=== PATIENT | female | born 1965 | race Caucasian/White ===

== ENCOUNTER 2017-08-24 07:23 | Observation (INO) | payer BC ==
[2017-08-24] VITALS (9 sets, daily range): BP systolic 132–156; BP diastolic 63–72; PULSE 67–102; RESP 17–18; TEMP 97.8–99.5; O2SAT 94–100
[~2017-08-24] VITALS: Ht 162.6 cm; Wt 72.0 kg
[~2017-08-24 07:23] MED LIST: BUPR100CR PO; ESTRGN METHTEST PO; SIMV20TA PO; ZOLP10TA3 PO
[2017-08-24] MEDS ORDERED: SODIUM CHLOR 0.9% 1000 ML INJ 1,000 ML IV ONE ×2 (07:29→10:15)
[2017-08-24] MEDS ORDERED: SODIUM CHLORIDE 0.9% FLUSH 10 ML FLUSH IVF PRN (07:30)
[2017-08-24] MEDS ORDERED: ACTIVATED CHARCOAL LIQUID 25 GM/120 ML BTL PO/NG ONE (07:30)
[2017-08-24] MEDS ORDERED: ONDANSETRON HCL 4 MG/2 ML VIAL IV PUSH ONE (07:30)
[2017-08-24] MEDS ORDERED: NALOXONE HCL 2 MG/2 ML VIAL IV PUSH ONE (07:30)
--- NOTE | 2017-08-24 07:31 | PD ---
HPI Chief Complaint: Altered mental status Time Seen by Provider: 07:29 Travel History International Travel<30 days: No Contact w/Intl Traveler<30days: No History of Present Illness HPI 52-year-old female arrived to the ER by EMS secondary to altered mental status. She has found by her who works nights to have been asleep in her bed in very slow to arousal with tactile stimulus. EMS reports hydrocodone in lorazepam prescriptions at the bedside. EMS an odor of alcohol or seeing alcohol on scene. Initially a GCS of 8. After Narcan it improved to about 10 or so. The blood glucose in vital signs were normal aside from a respiratory rate of 6 initially. PFSH Past Medical History Depression: Yes Cancer: No Cardiovascular Problems: Yes (HISTORY OF RT SUBCLAVIAN STEAL SYNDROME) High Cholesterol: Yes Chest Pain: Yes Diminished Hearing: No Endocrine: No Genitourinary: No Hypertension: Yes Immune Disorder: No Musculoskeletal: No Neurologic: No Psychiatric: Yes Reproductive: No Respiratory: No Menopausal: Yes Past Surgical History Hysterectomy: Yes Thoracic Surgery: Yes (BREAST AUGMENTATION) Social History Alcohol Use: No Tobacco Use: Yes (1/2PPD) Substance Use: No Allergies-Medications (Allergen,Severity, Reaction): Coded Allergies: Sulfa (Sulfonamide Antibiotics) (Unverified Allergy, Severe, 03/21/17) Reported Meds & Prescriptions Reported Meds & Active Scripts Active Reported Wellbutrin Sr (Bupropion HCl) 100 Mg Tab 100 Mg PO DAILY Simvastatin 20 Mg Tab 20 Mg PO HS Zolpidem Tartrate 10 Mg Tab 10 Mg PO HS [Estrgn Methtest ] PO DAILY Review of Systems ROS Limitations: Clinical Condition Physical Exam Narrative GENERAL: 52-year-old female well-nourished well-developed a GCS 12 SKIN: Warm and dry. No evidence IV drug abuse. HEAD: Atraumatic. Normocephalic. EYES: No scleral icterus. No injection or drainage. Pupils equal round reactive to light. Pupils about 3 mm. ENT: No nasal bleeding or discharge. Mucous membranes pink and moist. NECK: Trachea midline. No JVD. CARDIOVASCULAR: Heart rate about 100. The rhythm is regular RESPIRATORY: No accessory muscle use. Clear to auscultation. Breath sounds equal bilaterally. GASTROINTESTINAL: Abdomen soft, non-tender, nondistended. Hepatic and splenic margins not palpable. MUSCULOSKELETAL: Extremities without clubbing, cyanosis, or edema. No obvious deformities. NEUROLOGICAL: GCS is 12 (eyes 4, verbal 4, motor 4). No focal cranial nerve deficit. PSYCHIATRIC: Presumed polysubstance ingestion of indeterminate intent. Unable to assess further. Data Data Last Documented VS Vital Signs Date Time Temp Pulse Resp B/P (MAP) Pulse Ox O2 Delivery O2 Flow Rate FiO2 08/24/17 07:52 97 Room Air 08/24/17 07:29 97.8 Orders Orders Complete Blood Count With Diff (08/24/17 07:29) Comprehensive Metabolic Panel (08/24/17 07:29) Chest, Single Ap (08/24/17 07:29) Iv Access Insert/Monitor (08/24/17 07:29) Ecg Monitoring (08/24/17 07:29) Oximetry (08/24/17 07:29) Charcoal Activated Liq (Actidose-Aqua Li (08/24/17 07:30) Naloxone Inj (Narcan Inj) (08/24/17 07:30) Ondansetron Inj (Zofran Inj) (08/24/17 07:30) Sodium Chloride 0.9% Flush (Ns Flush) (08/24/17 07:30) Sodium Chlor 0.9% 1000 Ml Inj (Ns 1000 M (08/24/17 07:29) Drug Screen, Random Urine (08/24/17 07:29) Alcohol (Ethanol) (08/24/17 07:29) Salicylates (Aspirin) (08/24/17 07:29) Tylenol (Acetaminophen) (08/24/17 07:29) Prothrombin Time / Inr (Pt) (08/24/17 07:29) Act Partial Throm Time (Ptt) (08/24/17 07:29) Psych Screen (08/24/17 08:53) Sodium Chlor 0.9% 1000 Ml Inj (Ns 1000 M (08/24/17 10:15) Consult Psychiatry (08/24/17 ) (Hub Use Only)Inp Phy Cons/Ref (08/24/17 ) Admit Order (Ed Use Only) (08/24/17 ) Metal Sander / Telemetry JOSE ANTONIO.Q8H (08/24/17 10:32) Vital Signs (Adult) Q4H (08/24/17 10:32) Activity Bed Rest (08/24/17 10:32) Place In Observation (08/24/17 ) Vital Signs (Adult) Q4H (08/24/17 10:30) Activity Oob With Assistance (08/24/17 10:30) Intake + Output JOSE ANTONIO.QSHIFT (08/24/17 10:30) Diet Regular Basic (08/24/17 Lunch) Sodium Chlor 0.9% 1000 Ml Inj (Ns 1000 M (08/24/17 11:00) Sodium Chloride 0.9% Flush (Ns Flush) (08/24/17 10:30) Sodium Chloride 0.9% Flush (Ns Flush) (08/24/17 21:00) Acetaminophen (Tylenol) (08/24/17 10:30) Ondansetron Inj (Zofran Inj) (08/24/17 10:30) Basic Metabolic Panel (Bmp) (08/25/17 06:00) Complete Blood Count With Diff (08/25/17 06:00) Electrocardiogram (08/24/17 10:30) Electrocardiogram (08/24/17 16:30) Resp Oxygen Jean Carlos C Titrat 1-4 L (08/24/17 ) Pt Request For Service (08/24/17 10:30) Case Management Consult (08/24/17 10:30) Enoxaparin Inj (Lovenox Inj) (08/24/17 10:30) Scd Bilateral/Knee High JOSE ANTONIO.BID (08/24/17 10:30) Kodak Bilateral/Knee High JOSE ANTONIO.QSHIFT (08/24/17 10:30) Naloxone Inj (Narcan Inj) (08/24/17 10:30) Docusate Sodium-Senna (Francesca-Colace) (08/24/17 21:00) Magnesium Hydroxide Liq (Milk Of Magnesi (08/24/17 10:30) Sennosides (Senokot) (08/24/17 10:30) Bisacodyl Supp (Dulcolax Supp) (08/24/17 10:30) Lactulose Liq (Lactulose Liq) (08/24/17 10:30) Labs Laboratory Tests Test 08/24/17 07:45 08/24/17 09:30 White Blood Count 16.6 TH/MM3 Red Blood Count 4.34 MIL/MM3 Hemoglobin 13.4 GM/DL Hematocrit 40.6 % Mean Corpuscular Volume 93.7 FL Mean Corpuscular Hemoglobin 30.9 PG Mean Corpuscular Hemoglobin Concent 33.0 % Red Cell Distribution Width 13.5 % Platelet Count 450 TH/MM3 Mean Platelet Volume 8.2 FL Neutrophils (%) (Auto) 80.3 % Lymphocytes (%) (Auto) 12.1 % Monocytes (%) (Auto) 7.4 % Eosinophils (%) (Auto) 0.0 % Basophils (%) (Auto) 0.2 % Neutrophils # (Auto) 13.3 TH/MM3 Lymphocytes # (Auto) 2.0 TH/MM3 Monocytes # (Auto) 1.2 TH/MM3 Eosinophils # (Auto) 0.0 TH/MM3 Basophils # (Auto) 0.0 TH/MM3 CBC Comment DIFF FINAL Differential Comment Prothrombin Time 10.7 SEC Prothromb Time International Ratio 1.1 RATIO Activated Partial Thromboplast Time 20.0 SEC Blood Urea Nitrogen 20 MG/DL Creatinine 1.34 MG/DL Random Glucose 101 MG/DL Total Protein 7.6 GM/DL Albumin 3.9 GM/DL Calcium Level 9.4 MG/DL Alkaline Phosphatase 91 U/L Aspartate Amino Transf (AST/SGOT) 33 U/L Alanine Aminotransferase (ALT/SGPT) 23 U/L Total Bilirubin 0.3 MG/DL Sodium Level 139 MEQ/L Potassium Level 3.8 MEQ/L Chloride Level 104 MEQ/L Carbon Dioxide Level 26.2 MEQ/L Anion Gap 9 MEQ/L Estimat Glomerular Filtration Rate 41 ML/MIN Salicylates Level LESS THAN 1.7 MG/DL Acetaminophen Level LESS THAN 2.0 MCG/ML Ethyl Alcohol Level LESS THAN 3 MG/DL Urine Opiates Screen POS Urine Barbiturates Screen NEG Urine Amphetamines Screen NEG Urine Benzodiazepines Screen POS Urine Cocaine Screen NEG Urine Cannabinoids Screen NEG MDM Medical Decision Making Medical Screen Exam Complete: Yes Emergency Medical Condition: Yes Differential Diagnosis Opioid overdose, benzo overdose, liver injury, metabolic disarray, overdose of indeterminate content Narrative Course CBC & BMP Diagram 08/24/17 07:45 Total Protein 7.6, Albumin 3.9, Calcium Level 9.4, Alkaline Phosphatase 91, Aspartate Amino Transf (AST/SGOT) 33, Alanine Aminotransferase (ALT/SGPT) 23, Total Bilirubin 0.3 There is no evidence of liver injury at this time. The patient has been monitored here for over 2 hours in has improved somewhat however is not at this time considered sufficiently competent neurologically for medical clearance. Ongoing monitoring with anticipation of improved mental status considered appropriate. Psych consultation. case d/w Dr Locke Diagnosis Primary Impression: Altered mental status Qualified Codes: R41.82 - Altered mental status, unspecified Additional Impressions: Opioid overdose Qualified Codes: T40.2X4A - Poisoning by other opioids, undetermined, initial encounter Benzodiazepine (tranquilizer) overdose Qualified Codes: T42.4X4A - Poisoning by benzodiazepines, undetermined, initial encounter Admitting Information Admitting Physician Requests: Observation Neo Ingram MD Aug 24, 2017 07:31
[2017-08-24 08:07] LABS: AUTOMATED NEUTROPHIL # 13.3 TH/MM3 (1.8-7.7); BASOPHIL % 0.2 % (0.0-2.0); HEMATOCRIT 40.6 % (35.0-46.0); HEMOGLOBIN 13.4 GM/DL (11.6-15.3); LYMPH % 12.1 % (9.0-44.0); MEAN CELL VOLUME 93.7 FL (80.0-100.0); MEAN CORPUSCULAR HEMOGLOBIN 30.9 PG (27.0-34.0); MEAN PLATELET VOLUME 8.2 FL (7.0-11.0); MONO % 7.4 % (0.0-8.0); MONOCYTE # 1.2 TH/MM3 (0-0.9); NEUT % 80.3 % (16.0-70.0); PLATELET COUNT 450 TH/MM3 (150-450); RED BLOOD COUNT 4.34 MIL/MM3 (4.00-5.30); RED CELL DISTRIBUTION WIDTH 13.5 % (11.6-17.2); WHITE BLOOD COUNT 16.6 TH/MM3 (4.0-11.0)
--- NOTE | 2017-08-24 08:11 | RADRPT ---
EXAM DATE/TIME: 08/24/2017 07:50 [place] COMPARISON: No previous studies available for comparison. INDICATIONS : Short of breath; AMS. MEDICAL HISTORY : Unobtainable. SURGICAL HISTORY : Unobtainable. ENCOUNTER: Initial ACUITY: 1 day PAIN SCORE: Non-responsive. LOCATION: Bilateral chest FINDINGS: Portable AP view of the chest demonstrates a normal-sized cardiac silhouette. There is symmetric biap ical pleural-parenchymal opacity, likely representing scar. No pleural effusion, airspace consolidati on, or pneumothorax identified. The bones and soft tissues demonstrate no acute finding. CONCLUSION: Symmetric biapical opacity likely representing pleural parenchymal scar. Otherwise, no acute finding is identified. Chinmay Sun MD on August 24, 2017 at 8:07 Board Certified Radiologist. This report was verified electronically.
[2017-08-24 08:20] LABS: INTERNATIONAL NORMALIZED RATIO 1.1 RATIO; PROTHROMBIN TIME - PATIENT 10.7 SEC (9.8-11.6)
[2017-08-24 08:39] LABS: ALBUMIN 3.9 GM/DL (3.4-5.0); AST (GOT) 33 U/L (15-37); BICARBONATE 26.2 MEQ/L (21.0-32.0); BLOOD UREA NITROGEN 20 MG/DL (7-18); CALCIUM 9.4 MG/DL (8.5-10.1); CHLORIDE 104 MEQ/L (98-107); CREATININE 1.34 MG/DL (0.50-1.00); GLOMERULAR FILTRATION RATE 41 ML/MIN (>89); GLUCOSE,RANDOM 101 MG/DL (74-106); SODIUM (NA) 139 MEQ/L (136-145)
[2017-08-24 08:40] LABS: ALT (GPT) 23 U/L (10-53)
[2017-08-24 08:42] LABS: ACETAMINOPHEN LESS THAN 2.0 MCG/ML (10.0-30.0); ALKALINE PHOSPHATASE 91 U/L (45-117); TOTAL BILIRUBIN ADULT 0.3 MG/DL (0.2-1.0); TOTAL PROTEIN 7.6 GM/DL (6.4-8.2)
[2017-08-24] MEDS ORDERED: SENNOSIDES 8.6 MG TAB PO PRN (10:30)
[2017-08-24] MEDS ORDERED: SODIUM CHLORIDE 0.9% FLUSH 10 ML FLUSH IV FLUSH PRN (10:30)
[2017-08-24] MEDS ORDERED: ACETAMINOPHEN 325 MG TAB PO PRN (10:30)
[2017-08-24] MEDS ORDERED: ONDANSETRON HCL 4 MG/2 ML VIAL IVP PRN (10:30)
[2017-08-24] MEDS ORDERED: MAGNESIUM HYDROXIDE SUSP 30 ML CUP PO PRN (10:30)
[2017-08-24] MEDS ORDERED: LACTULOSE SYRUP 20 GM/30 ML CUP PO PRN (10:30)
[2017-08-24] MEDS ORDERED: NALOXONE HCL 0.4 MG/ML AMP IV PUSH PRN (10:30)
[2017-08-24] MEDS ORDERED: BISACODYL 10 MG SUPP RECTAL PRN (10:30)
[2017-08-24] MEDS: SODIUM CHLOR 0.9% 1000 ML INJ 1,000 ML IV SCH ×2 (11:55→21:00)
--- NOTE | 2017-08-24 11:58 | HHI.HP ---
HPI Service [facility] Hospitalists Primary Care Physician Cherelle Handley MD Admission Diagnosis Polysubstance OD; AMS Diagnoses: Chief Complaint: AMS Travel History International Travel<30 Days: No Contact w/Intl Traveler <30 Da: No Traveled to Known Affected Are: No History of Present Illness Written by Alexa Lr, acting as scribe for Dr. Locke on 08/24/17 at 11: 53. This is a 52yo female with PMHX significant for right subclavian steal syndrome , HTN, HLD and depression who presents to [facility] with AMS. Patient was found by her early this morning in her bed unarousable with benzodiazepines and opiates at her beside. EMS was called to the house and patient had GCS score of 8. Her is at the bedside and due to the patients cognitive impairment, all history is obtained from discussion with the , ED physician and review of the medical record. The states they have been having some martial difficulties and he has not been staying at the house but still goes to check on her. He went in to check on her this morning and was not able to get her to wake up. He denies that she drinks any alcohol or uses any illicit drugs. In the ED, patients GCS was around 12. Her UDS positive for opiates and benzodiazepines. Review of Systems 10 point review of systems attempted but unable to complete due to patients altered mental status Past Family Social History Past Medical History HTN HLD Right subclavian steal syndrome Depression Past Surgical History Breast augmentation Hysterectomy Angioplasty right subclavian 2013 Reported Medications Wellbutrin Sr (Bupropion HCl) 100 Mg Tab 100 Mg PO DAILY Simvastatin 20 Mg Tab 20 Mg PO HS Zolpidem Tartrate 10 Mg Tab 10 Mg PO HS [Estrgn Methtest ] PO DAILY Allergies: Coded Allergies: Sulfa (Sulfonamide Antibiotics) (Unverified Allergy, Severe, 03/21/17) Active Ordered Medications Current Medications Medications (Trade) Dose Ordered Sig/Guera Route Start Time Stop Time Status Last Admin (NS Flush) 2 ml UNSCH PRN IVF 08/24/17 07:30 Sodium Chloride 1,000 ml @ 100 mls/hr Q10H IV 08/24/17 11:00 (NS Flush) 2 ml UNSCH PRN IV FLUSH 08/24/17 10:30 (NS Flush) 2 ml BID IV FLUSH 08/24/17 21:00 (Tylenol) 650 mg Q4H PRN PO 08/24/17 10:30 (Zofran Inj) 4 mg Q6H PRN IVP 08/24/17 10:30 (Lovenox Inj) 40 mg Q24H SQ 08/24/17 12:00 (Narcan Inj) 0.4 mg UNSCH PRN IV PUSH 08/24/17 10:30 (Francesca-Colace) 1 tab BID PO 08/24/17 21:00 (Milk Of Magnesia Liq) 30 ml Q12H PRN PO 08/24/17 10:30 (Senokot) 17.2 mg Q12H PRN PO 08/24/17 10:30 (Dulcolax Supp) 10 mg DAILY PRN RECTAL 08/24/17 10:30 (Lactulose Liq) 30 ml DAILY PRN PO 08/24/17 10:30 Family History Mother, CVA Father, lung cancer Hypertension Coronary artery disease Social History Patient has a history of tobacco use of a half pack per day. Denies any alcohol use or illicit drug use. Physical Exam Vital Signs Vital Signs Date Time Temp Pulse Resp B/P (MAP) Pulse Ox O2 Delivery O2 Flow Rate FiO2 08/24/17 10:56 97 21 08/24/17 07:52 97 Room Air 08/24/17 07:52 97 Room Air 08/24/17 07:29 97.8 Physical Exam GENERAL: This is a well-nourished, well-developed female patient. Lethargic. Confused. Mumbling incomprehensibly. at the bedside. SKIN: No rashes, ecchymoses or lesions. Cool and dry. HEAD: Atraumatic. Normocephalic. No temporal or scalp tenderness. EYES: Pupils equal round and reactive. No scleral icterus. No injection or drainage. ENT: Nose without bleeding or purulent drainage. Throat without erythema, tonsillar hypertrophy or exudate. Uvula midline. Airway patent. Dry mucus membranes. NECK: Trachea midline. No lymphadenopathy. Supple, nontender, no meningeal signs. CARDIOVASCULAR: Regular rate and rhythm without murmurs, gallops, or rubs. RESPIRATORY: Poor effort. Clear to auscultation. Breath sounds equal bilaterally. No wheezes, rales, or rhonchi. GASTROINTESTINAL: Abdomen soft, non-tender, nondistended. No hepato-splenomegaly , or palpable masses. No guarding. MUSCULOSKELETAL: Extremities without clubbing, cyanosis, or edema. No joint tenderness, effusion, or edema noted. No calf tenderness. NEUROLOGICAL: Lethargic. Does not follow simple commands. Able to move all extremities spontaneously. Laboratory Laboratory Tests Test 08/24/17 07:45 08/24/17 09:30 White Blood Count 16.6 Red Blood Count 4.34 Hemoglobin 13.4 Hematocrit 40.6 Mean Corpuscular Volume 93.7 Mean Corpuscular Hemoglobin 30.9 Mean Corpuscular Hemoglobin Concent 33.0 Red Cell Distribution Width 13.5 Platelet Count 450 Mean Platelet Volume 8.2 Neutrophils (%) (Auto) 80.3 Lymphocytes (%) (Auto) 12.1 Monocytes (%) (Auto) 7.4 Eosinophils (%) (Auto) 0.0 Basophils (%) (Auto) 0.2 Neutrophils # (Auto) 13.3 Lymphocytes # (Auto) 2.0 Monocytes # (Auto) 1.2 Eosinophils # (Auto) 0.0 Basophils # (Auto) 0.0 CBC Comment DIFF FINAL Differential Comment Prothrombin Time 10.7 Prothromb Time International Ratio 1.1 Activated Partial Thromboplast Time 20.0 Blood Urea Nitrogen 20 Creatinine 1.34 Random Glucose 101 Total Protein 7.6 Albumin 3.9 Calcium Level 9.4 Alkaline Phosphatase 91 Aspartate Amino Transf (AST/SGOT) 33 Alanine Aminotransferase (ALT/SGPT) 23 Total Bilirubin 0.3 Sodium Level 139 Potassium Level 3.8 Chloride Level 104 Carbon Dioxide Level 26.2 Anion Gap 9 Estimat Glomerular Filtration Rate 41 Salicylates Level LESS THAN 1.7 Acetaminophen Level LESS THAN 2.0 Ethyl Alcohol Level LESS THAN 3 Urine Opiates Screen POS Urine Barbiturates Screen NEG Urine Amphetamines Screen NEG Urine Benzodiazepines Screen POS Urine Cocaine Screen NEG Urine Cannabinoids Screen NEG Result Diagram: 08/24/17 0745 08/24/1745 Imaging Last Impressions Chest X-Ray 08/24/17728 Signed Impressions: Service Date/Time: August 07:50 - CONCLUSION: Symmetric biapical opacity likely representing pleural parenchymal scar. Otherwise, no acute finding is identified. MD Susana Hartman VTE Risk Assessment Caprini VTE Risk Assessment: Mod/High Risk (score >= 2) Caprini Risk Assessment Model Point Value = 1 Point Value = 2 Point Value = 3 Point Value = 5 Age 41-60 Minor surgery BMI > 25 kg/m2 Swollen legs Varicose veins or History of unexplained or recurrent spontaneous Oral contraceptives or hormone replacement Sepsis (< 1 month) Serious lung disease, including pneumonia (< 1 month) Abnormal pulmonary function Acute myocardial infarction Congestive heart failure (< 1 month) History of inflammatory bowel disease Medical patient at bed rest Age 61-74 Arthroscopic surgery Major open surgery (> 45 min) Laparoscopic surgery (> 45 min) Malignancy Confined to bed (> 72 hours) Immobilizing plaster cast Central venous access Age >= 75 History of VTE Family history of VTE Factor V Leiden Prothrombin [id number] Lupus anticoagulant Anticardiolipin antibodies Elevated serum homocysteine Heparin-induced thrombocytopenia Other congenital or acquired thrombophilia Stroke (< 1 month) Elective arthroplasty Hip, pelvis, or leg fracture Acute spinal cord injury (< 1 month) Prophylaxis Regimen Total Risk Factor Score Risk Level Prophylaxis Regimen 0-1 Low Early ambulation 2 Moderate Order ONE of the following: *Sequential Compression Device (SCD) *Heparin 5000 units SQ BID 3-4 Higher Order ONE of the following medications: *Heparin 5000 units SQ TID *Enoxaparin/Lovenox 40 mg SQ daily (WT < 150 kg, CrCl > 30 mL/min) *Enoxaparin/Lovenox 30 mg SQ daily (WT < 150 kg, CrCl > 10-29 mL/min) *Enoxaparin/Lovenox 30 mg SQ BID (WT < 150 kg, CrCl > 30 mL/min) AND/OR *Sequential Compression Device (SCD) 5 or more Highest Order ONE of the following medications: *Heparin 5000 units SQ TID (Preferred with Epidurals) *Enoxaparin/Lovenox 40 mg SQ daily (WT < 150 kg, CrCl > 30 mL/min) *Enoxaparin/Lovenox 30 mg SQ daily (WT < 150 kg, CrCl > 10-29 mL/min) *Enoxaparin/Lovenox 30 mg SQ BID (WT < 150 kg, CrCl > 30 mL/min) AND *Sequential Compression Device (SCD) Assessment and Plan Assessment and Plan 52yo female with PMHX significant for right subclavian steal syndrome, HTN, HLD and depression who presents to [facility] with AMS. Patient was found by her early this morning in her bed unarousable with benzodiazepines and opiates at her beside. Altered mental status/metabolic encephalopathy Possible intentional drug overdose History of depression - UDS positive for opiates and benzodiazepine. Neg for ethyl alcohol. - Psychiatry consulted by ED, appreciate recommendations - Avoid all sedating medications - Neuro checks - IVF - Monitor respiratory status -Cheek act Acute kidney injury - suspect secondary to dehydration/poor oral intake - Creatinine 1.34, GFR 41 - Avoid nephrotoxic agent - IVF - Monitor kidney function Leukocytosis - suspect reactive - patient is afebrile. CXR reviewed by me, no acute cardiopulmonary process - monitor white count Hypertension/Dyslipidemia - will resume home medications once med reconciliation updated DVT prophylaxis - Lovenox subcutaneous This note was transcribed by TYRESE Jorgensen . I, Dr. Babita Locke personally performed the history, physical exam, and medical decision making; and confirmed the accuracy of the information in the transcribed note. Authenticated by Dr. Babita Locke on 08/24/17 at 11:53. Discussed Condition With ED physician, patient, , Alexa Healy Aug 24, 2017 11:58 Babita Locke MD Aug 24, 2017 13:46
[2017-08-24] MEDS ORDERED: ENOXAPARIN SODIUM 40 MG/0.4 ML SYRINGE SQ SCH (12:00)
--- NOTE | 2017-08-24 14:00 | PD.PSY.CON ---
Provisional Diagnosis Admission Date Aug 24, 2017 at 10:33 [place] I. Major depressive disorder, recurrent, severe, delirium due to benzodiazepine overdose [place] II. Deferred History of Present Illness Service Psychiatry Consult Requested By ER team Reason for Consult SI Primary Care Physician Cherelle Handley MD HPI The patient is a 52 year-old woman domiciled wither in [place], self employed, with psychiatry history of depression and anxiety , no hospitalizations, no SA, she is in Wellbutrin 100 mg bid prescribed by PCP, medical history of right subclavian steal syndrome, HTN, HLD, who presents to [facility] with AMS. Patient was found by her early this morning in her bed unarousable with benzodiazepines and opiates at her beside. EMS was called to the house and patient had GCS score of 8. Her is at the bedside and due to the patients cognitive impairment, all history is obtained from discussion with the , ED physician and review of the medical record. The states they have been having some martial difficulties and he has not been staying at the house but still goes to check on her. He went in to check on her this morning and was not able to get her to wake up. He denies that she drinks any alcohol or uses any illicit drugs. In the ED, patients GCS was around 12. Her UDS positive for opiates and benzodiazepines. On psychiatric evaluation patient is non arausable, sedated, no able to participate in the interview. I have collateral information from her Dhaval Bolden. He says that the patient has been in a lot of stress, overwhelmed and anxious in the last week. He says that he has an strong suspicion that she overdosed with suicidal intentions. He relates that they have been marital problems for months now, but in the last week does probably have exacerbated and few days ago he left the house and asked her for divorce. He clarifies that the patient has history of anxiety and depression and she is in psychotropics, but he doesn't know the name of the medicine and strength. Review of Systems ROS Limitations: Unresponsive, Uncooperative Past Family Social History Coded Allergies: Sulfa (Sulfonamide Antibiotics) (Unverified Allergy, Severe, 03/21/17) Reported Medications Simvastatin (Simvastatin) 20 Mg Tab, 20 MG PO HS 02/13/13 Discontinued Reported Medications Bupropion Hcl (Wellbutrin Sr) 100 Mg Tab, 100 MG PO DAILY, TAB 11/30/15 Zolpidem Tartrate (Zolpidem Tartrate) 10 Mg Tab, 10 MG PO HS 02/13/13 [Estrgn Methtest ] No Conflict Check, PO DAILY 02/13/13 Current Medications Medications (Trade) Dose Ordered Sig/Guera Route Start Time Stop Time Status Last Admin (NS Flush) 2 ml UNSCH PRN IVF 08/24/17 07:30 Sodium Chloride 1,000 ml @ 100 mls/hr Q10H IV 08/24/17 11:00 08/24/17 11:55 (NS Flush) 2 ml UNSCH PRN IV FLUSH 08/24/17 10:30 (NS Flush) 2 ml BID IV FLUSH 08/24/17 21:00 (Tylenol) 650 mg Q4H PRN PO 08/24/17 10:30 (Zofran Inj) 4 mg Q6H PRN IVP 08/24/17 10:30 (Lovenox Inj) 40 mg Q24H SQ 08/24/17 12:00 08/24/17 11:55 (Narcan Inj) 0.4 mg UNSCH PRN IV PUSH 08/24/17 10:30 (Francesca-Colace) 1 tab BID PO 08/24/17 21:00 (Milk Of Magnesia Liq) 30 ml Q12H PRN PO 08/24/17 10:30 (Senokot) 17.2 mg Q12H PRN PO 08/24/17 10:30 (Dulcolax Supp) 10 mg DAILY PRN RECTAL 08/24/17 10:30 (Lactulose Liq) 30 ml DAILY PRN PO 08/24/17 10:30 Family Psych History No family psychiatric history Social History Patient was born and raised in [place], she lives in [place] with , is self employed, her highest level of education is has Patient's Strengths (min. 2) Family support Physical Exam Patient is the sedated Vital Signs Vital Signs Date Time Temp Pulse Resp B/P (MAP) Pulse Ox O2 Delivery O2 Flow Rate FiO2 08/24/17 12:48 67 18 132/69 (90) 97 Room Air 08/24/17 10:56 21 08/24/17 07:29 97.8 I/O 08/24/17 08/24/17 08/25/17 08:00 16:00 00:00 Intake Total 1000 ml Balance 1000 ml Lab Results Test 08/24/17 07:45 08/24/17 09:30 White Blood Count 16.6 TH/MM3 Red Blood Count 4.34 MIL/MM3 Hemoglobin 13.4 GM/DL Hematocrit 40.6 % Mean Corpuscular Volume 93.7 FL Mean Corpuscular Hemoglobin 30.9 PG Mean Corpuscular Hemoglobin Concent 33.0 % Red Cell Distribution Width 13.5 % Platelet Count 450 TH/MM3 Mean Platelet Volume 8.2 FL Neutrophils (%) (Auto) 80.3 % Lymphocytes (%) (Auto) 12.1 % Monocytes (%) (Auto) 7.4 % Eosinophils (%) (Auto) 0.0 % Basophils (%) (Auto) 0.2 % Neutrophils # (Auto) 13.3 TH/MM3 Lymphocytes # (Auto) 2.0 TH/MM3 Monocytes # (Auto) 1.2 TH/MM3 Eosinophils # (Auto) 0.0 TH/MM3 Basophils # (Auto) 0.0 TH/MM3 CBC Comment DIFF FINAL Differential Comment Prothrombin Time 10.7 SEC Prothromb Time International Ratio 1.1 RATIO Activated Partial Thromboplast Time 20.0 SEC Blood Urea Nitrogen 20 MG/DL Creatinine 1.34 MG/DL Random Glucose 101 MG/DL Total Protein 7.6 GM/DL Albumin 3.9 GM/DL Calcium Level 9.4 MG/DL Alkaline Phosphatase 91 U/L Aspartate Amino Transf (AST/SGOT) 33 U/L Alanine Aminotransferase (ALT/SGPT) 23 U/L Total Bilirubin 0.3 MG/DL Sodium Level 139 MEQ/L Potassium Level 3.8 MEQ/L Chloride Level 104 MEQ/L Carbon Dioxide Level 26.2 MEQ/L Anion Gap 9 MEQ/L Estimat Glomerular Filtration Rate 41 ML/MIN Salicylates Level LESS THAN 1.7 MG/DL Acetaminophen Level LESS THAN 2.0 MCG/ML Ethyl Alcohol Level LESS THAN 3 MG/DL Urine Opiates Screen POS Urine Barbiturates Screen NEG Urine Amphetamines Screen NEG Urine Benzodiazepines Screen POS Urine Cocaine Screen NEG Urine Cannabinoids Screen NEG Mental Status Examination Appearance: Disheveled (Limited MSE due to level of sedation ) Consciousness: Lethargic Suicidal Ideation: Yes Assessment & Plan Problem List: (1) Delirium due to another medical condition ICD Codes: F05 - Delirium due to known physiological condition (2) Benzodiazepine (tranquilizer) overdose ICD Codes: T42.4X1A - Poisoning by benzodiazepines, accidental (unintentional) , initial encounter Status: Acute (3) Major depressive disorder, single episode ICD Codes: F32.9 - Major depressive disorder, single episode, unspecified Assessment & Plan: At the moment of the evaluation patient is deeply slept, sedated after OD with benzodiazepines. Patient has been reportedly disorganized and agitated on her arrival in the ER mos probably due to delirium secondary to benzodiazepines intoxication. As patient's is highly like that she overdosed with suicidal intentions because he left the house last Monday and Monday they have an argument again and she suggested she was to commit suicide. At this moment patient represents an acute risk of danger to self and she meets criteria for involuntary psychiatric admission for stabilization. Augustus fernandez act the patient. CIWA protocol. Follow up poison control protocol. Case was discussed with Dr. Locke. Transfer to [facility] once medically apposite. Assessment & Plan Estimated LOS: days Problem Qualifiers (1) Benzodiazepine (tranquilizer) overdose: Qualified Codes: T42.4X4A - Poisoning by benzodiazepines, undetermined, initial encounter Mayco Cunha MD Aug 24, 2017 14:00
--- NOTE | 2017-08-24 18:55 | EKG ---
Date Performed: 08/24/2017 Time Performed: 11:50:37 PTAGE: 52 years EKG: Sinus rhythm NORMAL ECG PREVIOUS TRACING : 02/13/2013 13.03 DOCTOR: Trev Piper Interpretating Date/Time 08/24/2017 18:53:34
--- NOTE | 2017-08-24 19:39 | EKG ---
Date Performed: 08/24/2017 Time Performed: 16:35:30 PTAGE: 52 years EKG: Sinus rhythm MINIMAL ST DEPRESSION BORDERLINE ECG No significant change from prior electrocardiogram. PREVIOUS TRACING : 08/24/2017 11.50 DOCTOR: Carlos Wiley Interpretating Date/Time 08/24/2017 19:38:06
[2017-08-24] MEDS: SODIUM CHLORIDE 0.9% FLUSH 10 ML FLUSH IV FLUSH SCH (20:47)
[2017-08-24] MEDS: DOCUSATE SODIUM 50 MG/SENNA 8.6 MG TAB PO SCH (20:47)
[2017-08-25 01:43] VITALS: BP 105/53; PULSE 103; RESP 18; TEMP 99.1; O2SAT 94
[2017-08-25 05:24] VITALS: BP 105/55; PULSE 96; RESP 17; TEMP 98.3; O2SAT 95
[2017-08-25 06:11] LABS: AUTOMATED NEUTROPHIL # 7.7 TH/MM3 (1.8-7.7); BASOPHIL % 0.4 % (0.0-2.0); EOSINOPHIL % 0.2 % (0.0-4.0); HEMOGLOBIN 11.4 GM/DL (11.6-15.3); LYMPH % 21.6 % (9.0-44.0); LYMPHOCYTE # 2.4 TH/MM3 (1.0-4.8); MEAN CELL VOLUME 93.5 FL (80.0-100.0); MEAN CORPUSCULAR HEMOGLOBIN 31.3 PG (27.0-34.0); MEAN CORPUSCULAR HGB CONC 33.4 % (32.0-36.0); MEAN PLATELET VOLUME 8.3 FL (7.0-11.0); MONO % 8.4 % (0.0-8.0); MONOCYTE # 0.9 TH/MM3 (0-0.9); NEUT % 69.4 % (16.0-70.0); PLATELET COUNT 370 TH/MM3 (150-450); RED BLOOD COUNT 3.63 MIL/MM3 (4.00-5.30); RED CELL DISTRIBUTION WIDTH 13.1 % (11.6-17.2); WHITE BLOOD COUNT 11.1 TH/MM3 (4.0-11.0)
[2017-08-25 06:14] VITALS: PULSE 97
[2017-08-25 06:39] LABS: CALCIUM 8.4 MG/DL (8.5-10.1); CREATININE 1.21 MG/DL (0.50-1.00)
[2017-08-25] MEDS: SODIUM CHLOR 0.9% 1000 ML INJ 1,000 ML IV SCH (07:00)
[2017-08-25 08:00] VITALS: BP 136/65; PULSE 91; RESP 16; TEMP 98.4; O2SAT 97
[2017-08-25 08:34] LABS: ALBUMIN 3.2 GM/DL (3.4-5.0); DIRECT BILIRUBIN ADULT 0.1 MG/DL (0.0-0.2); INDIRECT BILIRUBIN 0.3 MG/DL (0.0-0.8); TOTAL BILIRUBIN ADULT 0.4 MG/DL (0.2-1.0); TOTAL PROTEIN 6.5 GM/DL (6.4-8.2)
[2017-08-25] MEDS: SODIUM CHLORIDE 0.9% FLUSH 10 ML FLUSH IV FLUSH SCH (09:00)
[2017-08-25] MEDS: DOCUSATE SODIUM 50 MG/SENNA 8.6 MG TAB PO SCH (09:00)
--- NOTE | 2017-08-25 09:41 | HHI.PR ---
Subjective Remarks Patient in nad. Says she feels better. She is more awake and alert. Per family almost at baseline. Patient denies any cp, sob n/v/d/c. Objective Vitals Vital Signs Date Time Temp Pulse Resp B/P (MAP) Pulse Ox O2 Delivery O2 Flow Rate FiO2 08/25/17 08:00 98.4 91 16 136/65 (88) 97 08/25/17 06:14 97 08/25/17 05:24 98.3 96 17 105/55 (72) 95 08/25/17 02:58 21 08/25/17 01:43 99.1 103 18 105/53 (70) 94 08/24/17 20:36 99.5 102 17 132/63 (86) 94 08/24/17 18:30 93 08/24/17 17:50 98.6 98 18 143/72 (95) 95 08/24/17 15:25 98.1 89 18 144/68 (93) 100 08/24/17 12:48 67 18 132/69 (90) 97 Room Air 08/24/17 10:56 97 21 08/24/17 10:30 75 18 156/72 (100) 100 Room Air I/O 08/24/17 08/24/17 08/24/17 08/25/17 08/25/17 08/25/17 07:00 15:00 23:00 07:00 15:00 23:00 Intake Total 1000 ml 100 ml Balance 1000 ml 100 ml Intake Oral 100 ml IV Total 1000 ml # Voids 3 Result Diagram: 08/25/17 0508/25/17 0522 Imaging Last Impressions Chest X-Ray 08/24/17 07 Signed Impressions: Service Date/Time: August 07:50 - CONCLUSION: Symmetric biapical opacity likely representing pleural parenchymal scar. Otherwise, no acute finding is identified. Chinmay Sun MD Objective Remarks GENERAL: This is a well-nourished, well-developed female patient, appears in nad. More awake and alert CARDIOVASCULAR: Regular rate and rhythm without murmurs, gallops, or rubs. RESPIRATORY: Poor effort. Clear to auscultation. Breath sounds equal bilaterally. No wheezes, rales, or rhonchi. GASTROINTESTINAL: Abdomen soft, non-tender, nondistended. No hepato-splenomegaly , or palpable masses. No guarding. MUSCULOSKELETAL: Extremities without clubbing, cyanosis, or edema. No joint tenderness, effusion, or edema noted. No calf tenderness. NEUROLOGICAL: more awake and alert and oriented x4. Follows commands and answers appropriately all questions. CN 2-12 grossly normal. Motor and sensory intact. Normal speech. A/P Assessment and Plan 52yo female with PMHX significant for right subclavian steal syndrome, HTN, HLD and depression who presents to [facility] with AMS. Patient was found by her early this morning in her bed unarousable with benzodiazepines and opiates at her beside. Altered mental status/metabolic encephalopathy Possible intentional drug overdose History of depression - UDS positive for opiates and benzodiazepine. Neg for ethyl alcohol. - Psychiatry consulted by ED, appreciate recommendations - Avoid all sedating medications - Neuro checks - IVF - Monitor respiratory status - Cheek act - DC to inpatient psych Acute kidney injury, improving to be DC to med psych to continue IVF , encourage PO intake - suspect secondary to dehydration/poor oral intake - Creatinine 1.34, GFR 41 - Avoid nephrotoxic agent - IVF - Monitor kidney function Leukocytosis - suspect reactive - patient is afebrile. CXR reviewed by me, no acute cardiopulmonary process - monitor white count Hypertension/Dyslipidemia - will resume home medications once med reconciliation updated DVT prophylaxis - Lovenox subcutaneous Discussed Condition With Patient, family Improving, pt almost at baseline. DC to inpatient psych Discharge Planning DC to inpatient psych in stable condition to follow up with PCP and consultants Meds per med reconciliations Activity ad tequila as tolerated Diet healthy heart DC time > 30 min Babita Locke MD Aug 25, 2017 09:41
[2017-08-25 10:52] VITALS: O2SAT 94
== END 2017-08-25 11:40 | disposition home or self-care (01) ==
LOC: NEPC 07:23 → NEDA 10:33 → NEPHCDU 14:43
PROVIDERS: ADMIT Hospitalist; ATTEND Hospitalist
DX: G93.41 Metabolic encephalopathy (principal); T42.4X1A Poisoning by benzodiazepines, accidental (unintentional), initial encounter; T40.2X1A Poisoning by other opioids, accidental (unintentional), initial encounter; F05 Delirium due to known physiological condition; I10 Essential (primary) hypertension; F32.9 Major depressive disorder, single episode, unspecified; E78.5 Hyperlipidemia, unspecified; D72.829 Elevated white blood cell count, unspecified; N17.9 Acute kidney failure, unspecified; Z63.0 Problems in relationship with spouse or partner; Z72.0 Tobacco use; Z90.710 Acquired absence of both cervix and uterus
CPT/HCPCS: 71045; 80048; 80053; 80076; 80307; 85025; 85610; 85730; 93005; 96361; 96372; 96374; 96375; 97162; 99285; G0378; G8987; G8988; J1650; J2310; J2405; J7030

== ENCOUNTER 2017-08-25 10:35 | Inpatient (IN) | payer BC ==
[~2017-08-25] VITALS: Ht 149.9 cm; Wt 53.3 kg
[2017-08-25] MEDS ORDERED: MAGNESIUM HYDROXIDE SUSP 30 ML CUP PO PRN (12:00)
[2017-08-25] MEDS ORDERED: LORazepam 0.5 MG TAB PO PRN (12:00)
[2017-08-25] MEDS ORDERED: ALUMINUM/MAGNESIUM/SIMETH 30 ML CUP PO PRN (12:00)
[2017-08-25] MEDS: NICOTINE 21 MG/24 HR PATCH T-DERMAL SCH (12:00)
[2017-08-25] MEDS ORDERED: LORazepam 2 MG/ML VIAL IM PRN ×2 (12:00)
--- NOTE | 2017-08-25 12:08 | HHI.HP ---
Provisional Diagnosis Admission Date Aug 25, 2017 at 11:41 [place] I. Major depressive disorder, recurrent, severe without psychosis, benzodiazepine intoxication [place] II. Deferred Certification of Person's Competence To Provide Express and Informed Consent I have personally examined Laura Bolden , a person being served at [facility] on, Aug 25, 2017 11:59. Express and informed consent means consent voluntarily given in writing, by a competent person, after sufficient explanation and disclosure of the subject matter involved to enable the person to make a knowing and willful decision without any element of force, fraud, deceit, duress, or other form of constraint or coercion. This person is 18 years of age or older, is not now known to be incompetent to consent to treatment with a guardian advocate, and does not have a health care surrogate or proxy currently making medical treatment decisions. I have found this person to be one of the following: [] Competent to provide express and informed consent, as defined above, for voluntary admission to this facility and is competent to provide express and informed consent for treatment. He/she has the consistent capacity to make well reasoned, willful, and knowing decisions concerning his or her medical or mental health treatment. The person fully and consistently understands the purpose of the admission for examination/placement and is fully capable of personally exercising all rights assured [place] Incompetent to provide express and informed consent to voluntary admission, and this is incompetent to provide express and informed consent to treatment. The person must be transferred to involuntary status and a petition for a guardian advocate filed with the Circuit Court. [x] Refusing to provide express and informed consent to voluntary admission but is competent to provide express and informed consent for treatment. The person must be discharged or transferred to involuntary status. Form shall be completed within 24 hours of a person's arrival at the receiving facility and filed in the clinical record of each person: 1. Admitted on a voluntary basis 2. Permitted to provide express and informed consent to his/her own treatment 3. Allowed to transfer from involuntary to voluntary status 4. Prior to permitting a person to consent to his or her own treatment after having been previously found incompetent to consent to treatment. History of Present Illness Capacity: Has Capacity HPI 08/24/2017 The patient is a 52 year-old woman domiciled wither in [place], self employed, with psychiatry history of depression and anxiety , no hospitalizations, no SA, she is in Wellbutrin 100 mg bid prescribed by PCP, medical history of right subclavian steal syndrome, HTN, HLD, who presents to [facility] with AMS. Patient was found by her early this morning in her bed unarousable with benzodiazepines and opiates at her beside. EMS was called to the house and patient had GCS score of 8. Her is at the bedside and due to the patients cognitive impairment, all history is obtained from discussion with the , ED physician and review of the medical record. The states they have been having some martial difficulties and he has not been staying at the house but still goes to check on her. He went in to check on her this morning and was not able to get her to wake up. He denies that she drinks any alcohol or uses any illicit drugs. In the ED, patients GCS was around 12. Her UDS positive for opiates and benzodiazepines. On psychiatric evaluation patient is non arausable, sedated, no able to participate in the interview. I have collateral information from her Dhaval Bolden. He says that the patient has been in a lot of stress, overwhelmed and anxious in the last week. He says that he has an strong suspicion that she overdosed with suicidal intentions. He relates that they have been marital problems for months now, but in the last week does probably have exacerbated and few days ago he left the house and asked her for divorce. He clarifies that the patient has history of anxiety and depression and she is in psychotropics, but he doesn't know the name of the medicine and strength.\\ 08/25/2017: Today a psychiatric evaluation the patient is calm, cooperative, she seems to be objectively and subjectively depressed. Tearful, she expresses that she regrets her recent actions. She says that she has been extremely depressed, overwhelmed, frustrated with intrusive thoughts of harming herself. She says that she has been confronting serious problems with her . In the last days they have been talking about after 34 years of marriage "and this is not very easy for me, but the most horrible has been his last actions". The patient also reports that she has been feeling hopeless, helpless , worthless, and is sleeping very poorly. The patient is now fully oriented 3 , without any fluctuation of consciousness, no attention deficit. However, as per nurses, the patient has been described as disorganized, with periodic confusion and agitation, but not aggressive. Review of Systems Constitutional: DENIES: Diaphoretic episodes, Fatigue, Fever, Weight gain, Weight loss, Chills, Dizziness, Change in appetite, Night Sweats Endocrine: DENIES: Abnorml menstrual pattern, Heat/cold intolerance, Polydipsia , Polyuria, Polyphagia Eyes: DENIES: Blurred vision, Diplopia, Eye inflammation, Eye pain, Vision loss , Photosensitivity, Double Vision Ears, nose, mouth, throat: DENIES: Tinnitus, Hearing loss, Vertigo, Nasal discharge, Oral lesions, Throat pain, Hoarseness, Ear Pain, Running Nose, Epistaxis, Sinus Pain, Toothache, Odynophagia Respiratory: DENIES: Apneas, Cough, Snoring, Wheezing, Hemoptysis, Sputum production, Shortness of breath Cardiovascular: DENIES: Chest pain, Palpitations, Syncope, Dyspnea on Exertion , PND, Lower Extremity Edema, Orthopnea, Claudication Gastrointestinal: DENIES: Abdominal pain, Black stools, Bloody stools, Constipation, Diarrhea, Nausea, Vomiting, Difficulty Swallowing, Anorexia Genitourinary: DENIES: Abnormal vaginal bleeding, Dysmenorrhea, Dyspareunia, Sexual dysfunction, Urinary frequency, Urinary incontinence, Urgency, Hematuria , Dysuria, Nocturia, Vaginal discharge Musculoskeletal: DENIES: Joint pain, Muscle aches, Stiffness, Joint Swelling, Back pain, Neck pain Integumentary: DENIES: Abnormal pigmentation, Pruritus, Rash, Nail changes, Breast masses, Breast skin changes, Nipple discharge Hematologic/lymphatic: DENIES: Bruising, Lymphadenopathy Immunologic/allergic: DENIES: Eczema, Urticaria Neurologic: DENIES: Abnormal gait, Headache, Localized weakness, Paresthesias, Seizures, Speech Problems, Tremor, Poor Balance Psychiatric: COMPLAINS OF: Mood changes, Depression, Suicidal Ideation, DENIES : Anxiety, Confusion, Hallucinations, Agitation, Homicidal Ideation, Delusions Substance Abuse History Drugs/Alcohol past 12 months Patient denies the use of alcohol and illicit drugs Past Family Social History Coded Allergies: Sulfa (Sulfonamide Antibiotics) (Unverified Allergy, Severe, 03/21/17) Reported Medications Simvastatin (Simvastatin) 20 Mg Tab, 20 MG PO HS 02/13/13 Discontinued Reported Medications Bupropion Hcl (Wellbutrin Sr) 100 Mg Tab, 100 MG PO DAILY, TAB 11/30/15 Zolpidem Tartrate (Zolpidem Tartrate) 10 Mg Tab, 10 MG PO HS 02/13/13 [Estrgn Methtest ] No Conflict Check, PO DAILY 02/13/13 Current Medications Medications (Trade) Dose Ordered Sig/Guera Route Start Time Stop Time Status Last Admin (Ativan) 1 mg Q6H PRN PO 08/25/17 12:00 (Ativan Inj) 1 mg Q6H PRN IM 08/25/17 12:00 UNV (Ativan) 0.5 mg Q12H PRN PO 08/25/17 12:00 UNV (Ativan Inj) 0.5 mg Q12H PRN IM 08/25/17 12:00 UNV (Tylenol) 650 mg Q4H PRN PO 08/25/17 12:00 UNV (Milk Of Magnesia Liq) 30 ml DAILY PRN PO 08/25/17 12:00 UNV (Mag-Al Plus Susp Liq) 30 ml Q6H PRN PO 08/25/17 12:00 UNV (Habitrol 21 Mg Patch.24 Hr) 1 patch DAILY T-DERMAL 08/25/17 12:00 UNV (Zoloft) 25 mg DAILY PO 08/26/17 09:00 UNV Social History Patient was born and raised in [place], she lives in [place] with , is self employed, her highest level of education is has Patient's Strengths (min. 2) Family support Mental Status Examination Appearance: Appropriate Consciousness: Alert Orientation: x4 Motor Activity: Normal gait Speech: Unremarkable Language: Adequate Fund of Knowledge: Adequate Attention and Concentration: Adequate Memory: Unremarkable Mood: Sad Affect: Irritable, Sad Thought Process & Associations: Intact Thought Content: Appropriate Hallucination Type: None Delusion Type: None Suicidal Ideation: Yes Suicidal Plan: No Suicidal Intention: No Homicidal Ideation: No Homicidal Plan: No Homicidal Intention: No Insight: Poor Judgment: Poor Assessment & Plan Problem List: (1) Major depressive disorder, recurrent ICD Codes: F33.9 - Major depressive disorder, recurrent, unspecified Assessment & Plan: On psychiatric evaluation today the patient reports that she has been feeling very overwhelmed, frustrated, depressed in the context of ongoing problems with her . She says that in the last week they have been talking about divorce she has become aware about several "misbehaviors of my that are very difficult to swallow and tolerate". She reports that in the last week she has not been sleeping, she has been having intrusive recurrent thoughts committing suicide to the point that she could not take it anymore and she overdosed in order to . At this moment the patient says that she regrets her action, but she admits that she needs help to straighten her thoughts. Due to the level of risk the patient needs psychiatric admission for stabilization and safety. I will start Zoloft 25 mg daily for depression. Clonazepam 0.5 mg twice a day. Transfer patient to psychiatry once medically cleared. hospital food service worker intervention for psychosocial assessment, collateral information, individual and group therapies, to coordinate a safe discharge. Assessment & Plan Estimated LOS: Mayco Davis MD Aug 25, 2017 12:08
[2017-08-25] MEDS ORDERED: PILL SPLITTER OTHER PRN (12:15)
[2017-08-25 14:31] VITALS: BP 143/63; PULSE 106; RESP 17; TEMP 97.9; O2SAT 98
[2017-08-25 18:17] VITALS: BP 146/74; PULSE 105; RESP 18; TEMP 99.4; O2SAT 96
[2017-08-25] MEDS: REMOVE OLD NICODERM (NICOTINE) PATCH T-DERMAL SCH (21:00)
[2017-08-25] MEDS: PRAVASTATIN SOD 40 MG TAB PO SCH (21:28)
[2017-08-25] MEDS: LORazepam 1 MG TAB PO PRN (21:28)
[2017-08-26 05:56] VITALS: BP 127/62; PULSE 96; RESP 18; TEMP 99.3; O2SAT 95
[2017-08-26] MEDS: SERTRALINE HCL 50 MG TAB PO SCH ×2 (09:00→09:24)
[2017-08-26] MEDS: NICOTINE 21 MG/24 HR PATCH T-DERMAL SCH (09:00)
[2017-08-26 10:40] LABS: BICARBONATE 23.9 MEQ/L (21.0-32.0); BLOOD UREA NITROGEN 17 MG/DL (7-18); CALCIUM 9.3 MG/DL (8.5-10.1); CHLORIDE 107 MEQ/L (98-107); CHOLESTEROL 139 MG/DL (120-200); CHOLESTEROL/ HDL RATIO 2.17 RATIO; CREATININE 1.48 MG/DL (0.50-1.00); GLOMERULAR FILTRATION RATE 37 ML/MIN (>89); GLUCOSE,RANDOM 117 MG/DL (74-106); HDL CHOLESTEROL 63.9 MG/DL (40.0-60.0); LDL CHOLESTEROL 50 MG/DL (0-99); SODIUM (NA) 142 MEQ/L (136-145); TRIGLYCERIDES 124 MG/DL (42-150)
[2017-08-26] MEDS: LORazepam 1 MG TAB PO PRN ×2 (11:03→21:33)
[2017-08-26] MEDS ORDERED: POTASSIUM CHLORIDE 10 MEQ CONTROLLED RELEASE TAB PO ONE (11:15)
--- NOTE | 2017-08-26 11:15 | HHI.PYPN ---
Subjective Remarks Patient was seen and case discussed with nursing. This is a request for second opinion. Admission note was reviewed. Labwork was reviewed and potassium is low and creatinine is elevated. Patient is admitted for suicide attempt secondary to various life stressors. Patient describes a story of 's infidelity sending naked pictures of himself to various woman. Patient says she had a large benefit from Prozac in the past and prefers this medication Zoloft. Today she is quite anxious, tearful and depressed. However she denies suicidal homicidal ideation intent or plan Mental Status Examination Appearance: Appropriate Consciousness: Alert Orientation: x4 Motor Activity: Normal gait Speech: Unremarkable Language: Adequate Fund of Knowledge: Adequate Attention and Concentration: Adequate Memory: Unremarkable Mood: Sad Affect: Irritable, Sad, Anxious Thought Process & Associations: Intact Thought Content: Appropriate Hallucination Type: None Delusion Type: None Suicidal Ideation: Yes Suicidal Plan: No Suicidal Intention: No Homicidal Ideation: No Homicidal Plan: No Homicidal Intention: No Insight: Poor Judgment: Poor Results Labs Test 08/26/17 08:55 Blood Urea Nitrogen 17 MG/DL Creatinine 1.48 MG/DL Random Glucose 117 MG/DL Calcium Level 9.3 MG/DL Sodium Level 142 MEQ/L Potassium Level 3.1 MEQ/L Chloride Level 107 MEQ/L Carbon Dioxide Level 23.9 MEQ/L Anion Gap 11 MEQ/L Estimat Glomerular Filtration Rate 37 ML/MIN Triglycerides Level 124 MG/DL Cholesterol Level 139 MG/DL LDL Cholesterol 50 MG/DL HDL Cholesterol 63.9 MG/DL Cholesterol/HDL Ratio 2.17 RATIO Vitals/IOs Vital Signs Date Time Temp Pulse Resp B/P (MAP) Pulse Ox O2 Delivery O2 Flow Rate FiO2 08/26/17 05:56 99.3 96 18 127/62 (83) 95 Assessment & Plan Problem List: (1) Major depressive disorder, recurrent ICD Codes: F33.9 - Major depressive disorder, recurrent, unspecified Assessment & Plan We will replace potassium 30 mEq and recheck in a couple hours. Check magnesium level, consult medicine. DC Zoloft and start Prozac 20 mg. Trazodone 50 mg by mouth daily at bedtime. I agree with the first opinion to continue petition. Criteria include suicide attempt Justification for Cont. Inpt. Patient would decompensate in a less restrictive setting Mitchel Mann DO Aug 26, 2017 11:15
[2017-08-26] MEDS: FLUoxetine HCL 20 MG CAP PO SCH (12:03)
[2017-08-26 12:13] LABS: HEMOGLOBIN A1C 5.9 % (4.3-6.0)
--- NOTE | 2017-08-26 14:28 | PD.CONS ---
HPI Service [facility] Hospitalists Consult Requested By Psychiatric services Reason for Consult Medical management Primary Care Physician Cherelle Handley MD Diagnoses: History of Present Illness Written by Alexa Lr, acting as scribe for Dr. Locke on 08/26/17 at 14: 27. This is a 52yo female with PMHX significant for right subclavian steal syndrome , HTN, HLD and depression who was admitted to [facility] on 08/24/17 with AMS after being found by her unarousable with benzodiazepines and opiates at her beside due to suspected intentional overdose and has since been admitted to the inpatient psychiatric unit. Hospitalist services have been consulted for medical management. Patient seen and examined. She states yesterday she was unable to walk at all but has no problems today. She complains of bilateral lower abdominal pain that she attributes to her hysterectomy she had years ago. Review of Systems Except as stated in HPI: all other systems reviewed are Neg Past Family Social History Allergies: Coded Allergies: Sulfa (Sulfonamide Antibiotics) (Unverified Allergy, Severe, 03/21/17) Past Medical History HTN HLD Right subclavian steal syndrome Depression Past Surgical History Breast augmentation Hysterectomy Angioplasty right subclavian 2013 Reported Medications Wellbutrin Sr (Bupropion HCl) 100 Mg Tab 100 Mg PO DAILY Simvastatin 20 Mg Tab 20 Mg PO HS Zolpidem Tartrate 10 Mg Tab 10 Mg PO HS [Estrgn Methtest ] PO DAILY Active Ordered Medications Current Medications Medications (Trade) Dose Ordered Sig/Guera Route Start Time Stop Time Status Last Admin (Ativan) 1 mg Q6H PRN PO 08/25/17 12:00 08/26/17 11:03 (Ativan Inj) 1 mg Q6H PRN IM 08/25/17 12:00 (Tylenol) 650 mg Q4H PRN PO 08/25/17 12:00 (Milk Of Magnesia Liq) 30 ml DAILY PRN PO 08/25/17 12:00 (Mag-Al Plus Susp Liq) 30 ml Q6H PRN PO 08/25/17 12:00 (Habitrol 21 Mg Patch.24 Hr) 1 patch DAILY T-DERMAL 08/25/17 12:00 (Pravachol) 40 mg HS PO 08/25/17 21:00 08/25/17 21:28 Miscellaneous Information 1 HS T-DERMAL 08/25/17 21:00 (Pill Splitter) 1 ea UNSCH PRN OTHER 08/25/17 12:15 (PROzac) 20 mg DAILY PO 08/26/17 11:15 08/26/17 12:03 Family History DM HTN CAD Mother, multiple CVAs Father, lung cancer Social History Patient denies any tobacco use. Denies any alcohol use or illicit drug use. Physical Exam Vital Signs Vital Signs Date Time Temp Pulse Resp B/P (MAP) Pulse Ox O2 Delivery O2 Flow Rate FiO2 08/26/17 05:56 99.3 96 18 127/62 (83) 95 08/25/17 18:17 99.4 105 18 146/74 (98) 96 08/25/17 14:31 97.9 106 17 143/63 (89) 98 Physical Exam GENERAL: This is a well-nourished, well-developed female patient, in no apparent distress. Awake and alert. SKIN: No rashes, ecchymoses or lesions. Cool and dry. HEAD: Atraumatic. Normocephalic. No temporal or scalp tenderness. EYES: Pupils equal round and reactive. Extraocular motions intact. No scleral icterus. No injection or drainage. ENT: Nose without bleeding or purulent drainage. Throat without erythema, tonsillar hypertrophy or exudate. Uvula midline. Airway patent. NECK: Trachea midline. No lymphadenopathy. Supple, nontender, no meningeal signs. CARDIOVASCULAR: Regular rate and rhythm without murmurs, gallops, or rubs. RESPIRATORY: Clear to auscultation. Breath sounds equal bilaterally. No wheezes , rales, or rhonchi. GASTROINTESTINAL: Abdomen soft, non-tender, nondistended. No hepato-splenomegaly , or palpable masses. No guarding. MUSCULOSKELETAL: Extremities without clubbing, cyanosis, or edema. No joint tenderness, effusion, or edema noted. No calf tenderness. NEUROLOGICAL: Awake and alert. Cranial nerves II through XII grossly intact. Motor and sensory grossly within normal limits. Five out of 5 muscle strength in all muscle groups. Normal speech. Laboratory Laboratory Tests Test 08/26/17 08:55 Blood Urea Nitrogen 17 Creatinine 1.48 Random Glucose 117 Calcium Level 9.3 Sodium Level 142 Potassium Level 3.1 Chloride Level 107 Carbon Dioxide Level 23.9 Anion Gap 11 Estimat Glomerular Filtration Rate 37 Hemoglobin A1c 5.9 Triglycerides Level 124 Cholesterol Level 139 LDL Cholesterol 50 HDL Cholesterol 63.9 Cholesterol/HDL Ratio 2.17 Result Diagram: 08/26/17 0855 Assessment and Plan Assessment and Plan 52yo female with PMHX significant for right subclavian steal syndrome, HTN, HLD and depression who was admitted to [facility] on 08/24/17 with AMS after being found by her unarousable with benzodiazepines and opiates at her beside due to suspected intentional overdose and has since been admitted to the inpatient psychiatric unit. Depression Suicidal ideation Intentional overdose - Management per psychiatric team Lower abdominal pain - suspect somatization - obtain UA - monitor LORRI - suspect due to hypovolemia - encourage po intake - avoid nephrotoxic agents - continue to monitor kidney function Hypokalemia - po K repletion - am labs to monitor response Hypertension - controlled off of antihypertensives - continue to monitor BP and adjust treatment accordingly Dyslipidemia - continue statin therapy DVT prophylaxis - patient is ambulatory Thank you kindly for this consultation. Will continue to follow patient along with you. This note was transcribed by TYRESE Jorgensen . I, Dr. Babita Locke personally performed the history, physical exam, and medical decision making; and confirmed the accuracy of the information in the transcribed note. Authenticated by Dr. Babita Locke on 08/26/17 at 14:27. Discussed Condition With patient, nursing staff Alexa Lr Aug 26, 2017 14:28 Babita Locke MD Aug 26, 2017 16:53
[2017-08-26 17:17] VITALS: BP 130/64; PULSE 109; RESP 18; TEMP 98; O2SAT 95
[2017-08-26] MEDS: ACETAMINOPHEN 325 MG TAB PO PRN (17:21)
[2017-08-26] MEDS: REMOVE OLD NICODERM (NICOTINE) PATCH T-DERMAL SCH (21:00)
[2017-08-26] MEDS: PRAVASTATIN SOD 40 MG TAB PO SCH (21:00)
[2017-08-27 06:00] VITALS: BP 118/59; PULSE 115; RESP 16; TEMP 99.8; O2SAT 94
[2017-08-27] MEDS: NICOTINE 21 MG/24 HR PATCH T-DERMAL SCH (09:00)
[2017-08-27] MEDS: FLUoxetine HCL 20 MG CAP PO SCH (10:03)
--- NOTE | 2017-08-27 11:58 | HHI.PYPN ---
Subjective Remarks Patient was seen and case discussed with nursing. Patient remains at a crossroads about what to do to various social stressors. Her is been sending and receiving nude pictures and they have a company together. She denies suicidal or homicidal ideation intent or plan. Complaining of insomnia Mental Status Examination Appearance: Appropriate Consciousness: Alert Orientation: x4 Motor Activity: Normal gait Speech: Unremarkable Language: Adequate Fund of Knowledge: Adequate Attention and Concentration: Adequate Memory: Unremarkable Mood: Sad Affect: Irritable, Sad, Anxious Thought Process & Associations: Intact Thought Content: Appropriate Hallucination Type: None Delusion Type: None Suicidal Ideation: Yes Suicidal Plan: No Suicidal Intention: No Homicidal Ideation: No Homicidal Plan: No Homicidal Intention: No Insight: Poor Judgment: Poor Results Labs Test 08/26/17 21:05 Potassium Level 3.8 MEQ/L Magnesium Level 2.0 MG/DL Vitals/IOs Vital Signs Date Time Temp Pulse Resp B/P (MAP) Pulse Ox O2 Delivery O2 Flow Rate FiO2 08/27/17 06:00 99.8 115 16 118/59 (53) 94 Assessment & Plan Problem List: (1) Major depressive disorder, recurrent ICD Codes: F33.9 - Major depressive disorder, recurrent, unspecified Assessment & Plan Add trazodone 50 mg by mouth daily at bedtime Justification for Cont. Inpt. Patient will decompensate in a less restrictive setting Mitchel Mann DO Aug 27, 2017 11:58
[2017-08-27] MEDS: LORazepam 1 MG TAB PO PRN ×2 (12:32→23:38)
[2017-08-27 18:23] VITALS: BP 152/90; PULSE 110; RESP 18; TEMP 99; O2SAT 94
[2017-08-27] MEDS: traZODone HCL 50 MG TAB PO SCH (20:46)
[2017-08-27] MEDS: PRAVASTATIN SOD 40 MG TAB PO SCH (20:47)
[2017-08-27] MEDS: REMOVE OLD NICODERM (NICOTINE) PATCH T-DERMAL SCH (20:48)
--- NOTE | 2017-08-27 22:25 | HHI.PR ---
Subjective Remarks NOT SEEN Objective Vitals Vital Signs Date Time Temp Pulse Resp B/P (MAP) Pulse Ox O2 Delivery O2 Flow Rate FiO2 08/27/17 18:23 99.0 110 18 152/90 (110) 94 08/27/17 06:00 99.8 115 16 118/59 (78) 94 I/O 08/26/17 08/26/17 08/26/17 08/27/17 08/27/17 08/27/17 07:00 15:00 23:00 07:00 15:00 23:00 Intake Total 240 ml Balance 240 ml Intake Oral 240 ml Result Diagram: 08/26/172104 Objective Remarks GENERAL: This is a well-nourished, well-developed female patient, in no apparent distress. Awake and alert. SKIN: No rashes, ecchymoses or lesions. Cool and dry. HEAD: Atraumatic. Normocephalic. No temporal or scalp tenderness. EYES: Pupils equal round and reactive. Extraocular motions intact. No scleral icterus. No injection or drainage. ENT: Nose without bleeding or purulent drainage. Throat without erythema, tonsillar hypertrophy or exudate. Uvula midline. Airway patent. NECK: Trachea midline. No lymphadenopathy. Supple, nontender, no meningeal signs. CARDIOVASCULAR: Regular rate and rhythm without murmurs, gallops, or rubs. RESPIRATORY: Clear to auscultation. Breath sounds equal bilaterally. No wheezes , rales, or rhonchi. GASTROINTESTINAL: Abdomen soft, non-tender, nondistended. No hepato-splenomegaly , or palpable masses. No guarding. MUSCULOSKELETAL: Extremities without clubbing, cyanosis, or edema. No joint tenderness, effusion, or edema noted. No calf tenderness. NEUROLOGICAL: Awake and alert. Cranial nerves II through XII grossly intact. Motor and sensory grossly within normal limits. Five out of 5 muscle strength in all muscle groups. Normal speech. A/P Assessment and Plan 52yo female with PMHX significant for right subclavian steal syndrome, HTN, HLD and depression who was admitted to [facility] on 08/24/17 with AMS after being found by her unarousable with benzodiazepines and opiates at her beside due to suspected intentional overdose and has since been admitted to the inpatient psychiatric unit. Depression Suicidal ideation Intentional overdose - Management per psychiatric team Lower abdominal pain - suspect somatization - obtain UA - monitor LORRI/CKD stage 3 - suspect due to hypovolemia - encourage po intake - avoid nephrotoxic agents - continue to monitor kidney function Hypokalemia - po K repletion - rpt labs to monitor response Hypertension - off antihypertensives - continue to monitor BP and adjust treatment accordingly Dyslipidemia - continue statin therapy DVT prophylaxis - patient is ambulatory Zeke Mccormick MD Aug 27, 2017 22:25
[2017-08-28 06:01] VITALS: BP 115/57; PULSE 112; RESP 18; TEMP 102; O2SAT 98
[2017-08-28 07:35] VITALS: TEMP 100.6
[2017-08-28] MEDS: ACETAMINOPHEN 325 MG TAB PO PRN ×2 (07:38→17:16)
[2017-08-28] MEDS: FLUoxetine HCL 20 MG CAP PO SCH (09:00)
[2017-08-28] MEDS: NICOTINE 21 MG/24 HR PATCH T-DERMAL SCH (09:00)
[2017-08-28 10:17] VITALS: BP 119/60; PULSE 97; TEMP 99.7
--- NOTE | 2017-08-28 11:09 | HHI.PYPN ---
Subjective Remarks Especially was seen today for psychiatric reevaluation. Chart was reviewed. Notes from weekend psychiatrist also reviewed. The case was discussed with her counselor. On psychiatric evaluation today the patient continues to be very concerned about her behavior. Patient doesn't have a plan at this moment to be safe in the community. She says that she is overwhelmed, frustrated, she says that she would love to have a meeting with staff and her . She denies suicidal and homicidal ideation at this moment, she denies visual and auditory hallucinations. The patient is fully oriented 3. Compliant with medications, no severe side effects. Review of Systems Psychiatric: COMPLAINS OF: Depression Except as stated in HPI: all other systems reviewed are Neg Mental Status Examination Appearance: Appropriate Consciousness: Alert Orientation: x4 Motor Activity: Normal gait Speech: Unremarkable Language: Adequate Fund of Knowledge: Adequate Attention and Concentration: Adequate Memory: Unremarkable Mood: Sad Affect: Irritable, Sad, Anxious Thought Process & Associations: Intact Thought Content: Appropriate Hallucination Type: None Delusion Type: None Suicidal Ideation: Yes Suicidal Plan: No Suicidal Intention: No Homicidal Ideation: No Homicidal Plan: No Homicidal Intention: No Insight: Poor Judgment: Poor Results Vitals/IOs Vital Signs Date Time Temp Pulse Resp B/P (MAP) Pulse Ox O2 Delivery O2 Flow Rate FiO2 08/28/17 10:17 99.7 97 119/60 (79) 08/28/17 06:01 18 98 Assessment & Plan Problem List: (1) Major depressive disorder, recurrent ICD Codes: F33.9 - Major depressive disorder, recurrent, unspecified Assessment & Plan: Patient continues to show depressive symptoms, intrusive thoughts about recent marital conflict, continue current psychotropic regimen. Assessment & Plan Estimated LOS: days Justification for Cont. Inpt. Patient has an elevated risk to decompensate at a lower level of care. Mayco Cunha MD Aug 28, 2017 11:09
--- NOTE | 2017-08-28 14:09 | HHI.PR ---
Subjective Remarks Follow fever. MAXIMUM TEMPERATURE 102. Complaining of chills, productive cough of white phlegm and shortness of breath. Discussed with nursing staff Objective Vitals Vital Signs Date Time Temp Pulse Resp B/P (MAP) Pulse Ox O2 Delivery O2 Flow Rate FiO2 08/28/17 10:17 99.7 97 119/60 (79) 08/28/17 07:35 100.6 08/28/17 06:01 102.0 112 18 115/57 (76) 98 08/27/17 18:23 99.0 110 18 152/90 (110) 94 I/O 08/27/17 08/27/17 08/27/17 08/28/17 08/28/17 08/28/17 07:00 15:00 23:00 07:00 15:00 23:00 Intake Total 240 ml 240 ml Balance 240 ml 240 ml Intake Oral 240 ml 240 ml Result Diagram: 08/26/172104 Imaging Objective Remarks GENERAL: This is a well-nourished, well-developed female patient, in no apparent distress. Awake and alert. SKIN: No rashes, ecchymoses or lesions. Cool and dry. HEAD: Atraumatic. Normocephalic. No temporal or scalp tenderness. EYES: Pupils equal round and reactive. Extraocular motions intact. No scleral icterus. No injection or drainage. ENT: Nose without bleeding or purulent drainage. Throat without erythema, tonsillar hypertrophy or exudate. Uvula midline. Airway patent. NECK: Trachea midline. No lymphadenopathy. Supple, nontender, no meningeal signs. CARDIOVASCULAR: Regular rate and rhythm without murmurs, gallops, or rubs. RESPIRATORY: Coarse Breath sounds equal bilaterally. No wheezes, rales, or rhonchi. GASTROINTESTINAL: Abdomen soft, non-tender, nondistended. No guarding. MUSCULOSKELETAL: Extremities without clubbing, cyanosis, or edema. No joint tenderness, effusion, or edema noted. No calf tenderness. NEUROLOGICAL: Awake and alert. Cranial nerves II through XII grossly intact. Motor and sensory grossly within normal limits. Five out of 5 muscle strength in all muscle groups. Normal speech. A/P Assessment and Plan 52yo female with PMHX significant for right subclavian steal syndrome, HTN, HLD and depression who was admitted to [facility] on 08/24/17 with AMS after being found by her unarousable with benzodiazepines and opiates at her beside due to suspected intentional overdose and has since been admitted to the inpatient psychiatric unit. Fever. Obtain CBC, BMP, chest x-ray, sputum culture, nasal wash for flu and blood cultures Depression Suicidal ideation Intentional overdose - Management per psychiatric team Lower abdominal pain - suspect somatization - obtain UA, discussed with RN - monitor LORRI/CKD stage 3 - suspect due to hypovolemia - encourage po intake - avoid nephrotoxic agents - continue to monitor kidney function Hypokalemia - po K repletion - rpt labs to monitor response Hypertension - off antihypertensives - continue to monitor BP and adjust treatment accordingly Dyslipidemia - continue statin therapy DVT prophylaxis - patient is ambulatory Zeke Mccormick MD Aug 28, 2017 14:09
[2017-08-28] MEDS ORDERED: RESP: ALBUTEROL 2.5 MG/3 ML NEB (PRN) NEB (14:15)
--- NOTE | 2017-08-28 14:41 | RADRPT ---
EXAM DATE/TIME: 08/28/2017 14:01 [facility] COMPARISON: CHEST SINGLE AP, August 24, 2017, 7:50. INDICATIONS : Pneumonia. Shortness of breath. Congestion. MEDICAL HISTORY : None. SURGICAL HISTORY : None. ENCOUNTER: Initial ACUITY: 1 day PAIN SCORE: 8/10 LOCATION: Low back. FINDINGS: A single portable frontal view the chest shows bibasilar infiltrates which are new from the prior exa m. No effusions. Heart is normal in size. Scoliotic curvature to the spine. CONCLUSION: Bibasilar infiltrates. Srinivas Cornelius Jr., MD on August 28, 2017 at 14:38 Board Certified Radiologist. This report was verified electronically.
[2017-08-28 16:19] LABS: BACTERIA, URINE MANY /hpf; BILIRUBIN, URINE NEG (NEG); BLOOD, URINE SMALL (NEG); GLUCOSE,URINE NEG (NEG); KETONE, URINE TRACE mg/dL (NEG); MUCUS URINE FEW /lpf (OCC); NITRITE,URINE NEG (NEG); SQUAMOUS EPITHELIAL CELL URINE 10 /hpf (0-5); URINE COLOR YELLOW (YELLW/STRAW); URINE LEUKOCYTE ESTERASE TRACE (NEG)
[2017-08-28] MEDS: LORazepam 1 MG TAB PO PRN (17:16)
[2017-08-28 18:13] VITALS: BP 124/58; PULSE 104; RESP 18; TEMP 100; O2SAT 95
[2017-08-28] MEDS: traZODone HCL 50 MG TAB PO SCH (20:40)
[2017-08-28] MEDS: PRAVASTATIN SOD 40 MG TAB PO SCH (20:40)
[2017-08-28] MEDS ORDERED: AZITHROMYCIN 250 MG TAB PO ONE (20:45)
[2017-08-28] MEDS: REMOVE OLD NICODERM (NICOTINE) PATCH T-DERMAL SCH (20:46)
[2017-08-28] MEDS: CEFUROXIME AXETIL 500 MG TAB PO SCH (21:00)
[2017-08-28 22:17] LABS: AUTOMATED NEUTROPHIL # 8.3 TH/MM3 (1.8-7.7); BASOPHIL # 0.1 TH/MM3 (0-0.2); BASOPHIL % 0.5 % (0.0-2.0); EOSINOPHIL % 0.4 % (0.0-4.0); HEMATOCRIT 34.3 % (35.0-46.0); HEMOGLOBIN 11.6 GM/DL (11.6-15.3); LYMPH % 16.8 % (9.0-44.0); LYMPHOCYTE # 1.9 TH/MM3 (1.0-4.8); MEAN CELL VOLUME 92.9 FL (80.0-100.0); MEAN CORPUSCULAR HEMOGLOBIN 31.3 PG (27.0-34.0); MEAN CORPUSCULAR HGB CONC 33.7 % (32.0-36.0); MEAN PLATELET VOLUME 8.8 FL (7.0-11.0); MONO % 9.5 % (0.0-8.0); MONOCYTE # 1.1 TH/MM3 (0-0.9); NEUT % 72.8 % (16.0-70.0); PLATELET COUNT 269 TH/MM3 (150-450); RED BLOOD COUNT 3.69 MIL/MM3 (4.00-5.30); RED CELL DISTRIBUTION WIDTH 13.2 % (11.6-17.2); WHITE BLOOD COUNT 11.4 TH/MM3 (4.0-11.0)
[2017-08-28 22:38] LABS: BICARBONATE 25.8 MEQ/L (21.0-32.0); CALCIUM 8.8 MG/DL (8.5-10.1); CREATININE 1.21 MG/DL (0.50-1.00)
[2017-08-29] MEDS: ACETAMINOPHEN 325 MG TAB PO PRN (05:29)
[2017-08-29 05:50] VITALS: BP 117/55; PULSE 114; RESP 18; TEMP 102.8; O2SAT 93
[2017-08-29 06:45] VITALS: TEMP 101.6
[2017-08-29] MEDS: NICOTINE 21 MG/24 HR PATCH T-DERMAL SCH (07:15)
[2017-08-29] MEDS: FLUoxetine HCL 20 MG CAP PO SCH (08:00)
[2017-08-29] MEDS ORDERED: AZITHROMYCIN 250 MG TAB PO SCH (09:00)
[2017-08-29] MEDS: CEFUROXIME AXETIL 500 MG TAB PO SCH (09:00)
--- NOTE | 2017-08-29 11:29 | HHI.PYPN ---
Subjective Remarks Patient was seen today for psychiatric evaluation. Chart reviewed. Case discussed with the nurse in charge. On psychiatric evaluation today patient is found walking in the [place], she is calm, cooperative, reports improved mood. Patient says that she has a good plan to continue her life without her . She will go to live with a girlfriend her house. She is planning to give herself sometimes out of her house. She reports that her family is in agreement with this plan. At the same time she will continue her psychiatric and medical care as an outpatient as recommended. Today her mood is ok, still having some sad thoughts about her situation, difficulty sleeping at night, but no suicidal ideation, no homicidal ideation, no visual or auditory hallucinations. She has been compliant with medications, interacting appropriately with staff and peers in the unit. Mental Status Examination Appearance: Appropriate Consciousness: Alert Orientation: x4 Motor Activity: Normal gait Speech: Unremarkable Language: Adequate Fund of Knowledge: Adequate Attention and Concentration: Adequate Memory: Unremarkable Mood: Sad Affect: Sad, Anxious Thought Process & Associations: Intact Thought Content: Appropriate Hallucination Type: None Delusion Type: None Suicidal Ideation: Yes Suicidal Plan: No Suicidal Intention: No Homicidal Ideation: No Homicidal Plan: No Homicidal Intention: No Insight: Poor Judgment: Poor Results Labs Test 08/28/17 14:22 08/28/17 21:50 Urine Color YELLOW Urine Turbidity HAZY Urine pH 6.0 Urine Specific Silva 1.026 Urine Protein 100 mg/dL Urine Glucose (UA) NEG mg/dL Urine Ketones TRACE mg/dL Urine Occult Blood SMALL Urine Nitrite NEG Urine Bilirubin NEG Urine Urobilinogen 2.0 MG/DL Urine Leukocyte Esterase TRACE Urine RBC LESS THAN 1 /hpf Urine WBC 4 /hpf Urine Squamous Epithelial Cells 10 /hpf Urine Bacteria MANY /hpf Urine Mucus FEW /lpf Microscopic Urinalysis Comment CULTURE INDICATED White Blood Count 11.4 TH/MM3 Red Blood Count 3.69 MIL/MM3 Hemoglobin 11.6 GM/DL Hematocrit 34.3 % Mean Corpuscular Volume 92.9 FL Mean Corpuscular Hemoglobin 31.3 PG Mean Corpuscular Hemoglobin Concent 33.7 % Red Cell Distribution Width 13.2 % Platelet Count 269 TH/MM3 Mean Platelet Volume 8.8 FL Neutrophils (%) (Auto) 72.8 % Lymphocytes (%) (Auto) 16.8 % Monocytes (%) (Auto) 9.5 % Eosinophils (%) (Auto) 0.4 % Basophils (%) (Auto) 0.5 % Neutrophils # (Auto) 8.3 TH/MM3 Lymphocytes # (Auto) 1.9 TH/MM3 Monocytes # (Auto) 1.1 TH/MM3 Eosinophils # (Auto) 0.0 TH/MM3 Basophils # (Auto) 0.1 TH/MM3 CBC Comment DIFF FINAL Differential Comment Blood Urea Nitrogen 22 MG/DL Creatinine 1.21 MG/DL Random Glucose 94 MG/DL Calcium Level 8.8 MG/DL Magnesium Level 2.0 MG/DL Sodium Level 139 MEQ/L Potassium Level 3.7 MEQ/L Chloride Level 105 MEQ/L Carbon Dioxide Level 25.8 MEQ/L Anion Gap 8 MEQ/L Estimat Glomerular Filtration Rate 47 ML/MIN B-Type Natriuretic Peptide 33 PG/ML Date/Time Source Procedure Growth Status 08/29/17 09:47 Blood Peripheral Aerobic Blood Culture Pending Received 08/29/17 09:47 Blood Peripheral Anaerobic Blood Culture Pending Received 08/28/17 16:45 Sputum Expectorated Sputum Gram Stain - Final Resulted 08/28/17 16:45 Sputum Expectorated Sputum Sputum Culture Pending Resulted 08/28/17 14:22 Urine Clean Catch Urine Culture Pending Worksheet Vitals/IOs Vital Signs Date Time Temp Pulse Resp B/P (MAP) Pulse Ox O2 Delivery O2 Flow Rate FiO2 08/29/17 06:45 101.6 08/29/17 05:50 114 18 117/55 (75) 93 Assessment & Plan Problem List: (1) Major depressive disorder, recurrent ICD Codes: F33.9 - Major depressive disorder, recurrent, unspecified Assessment & Plan: Continue current psychotropic regimen. Patient has developed high temperatures, medical team ordered appropriate labs. Recommendations appreciated. Brief supportive psychotherapy provided. Assessment & Plan Estimated LOS: days Justification for Cont. Inpt. Patient has an elevated risk of danger to self at a lower level of care. Mayco Cunha MD Aug 29, 2017 11:29
[2017-08-29 13:41] VITALS: PULSE 93; RESP 18; TEMP 99; O2SAT 94
[2017-08-29] MEDS ORDERED: FLUO20CA12 PO (14:11)
--- NOTE | 2017-08-29 14:12 | HHI.DS ---
Psychiatry Discharge Summary Inpatient Psychiatric care?: Yes Advance Directive: No Reason Not Provided: Due to Patient Condition Mental Health AdvanceDirective: No Health Care Proxy: Yes Admission Admission Date Aug 25, 2017 at 11:41 Admission Diagnosis: (1) Major depressive disorder, recurrent ICD Code: F33.9 - Major depressive disorder, recurrent, unspecified Brief History 08/24/2017 The patient is a 52 year-old woman domiciled [place] in [place], self employed, with psychiatry history of depression and anxiety , no hospitalizations, no SA, she is in Wellbutrin 100 mg bid prescribed by PCP, medical history of right subclavian steal syndrome, HTN, HLD, who presents to [facility] with AMS. Patient was found by her early this morning in her bed unarousable with benzodiazepines and opiates at her beside. EMS was called to the house and patient had GCS score of 8. Her is at the bedside and due to the patients cognitive impairment, all history is obtained from discussion with the , ED physician and review of the medical record. The states they have been having some martial difficulties and he has not been staying at the house but still goes to check on her. He went in to check on her this morning and was not able to get her to wake up. He denies that she drinks any alcohol or uses any illicit drugs. In the ED, patients GCS was around 12. Her UDS positive for opiates and benzodiazepines. On psychiatric evaluation patient is non arausable, sedated, no able to participate in the interview. I have collateral information from her Dhaval Bolden. He says that the patient has been in a lot of stress, overwhelmed and anxious in the last week. He says that he has an strong suspicion that she overdosed with suicidal intentions. He relates that they have been marital problems for months now, but in the last week does probably have exacerbated and few days ago he left the house and asked her for divorce. He clarifies that the patient has history of anxiety and depression and she is in psychotropics, but he doesn't know the name of the medicine and strength.\\ 08/25/2017: Today a psychiatric evaluation the patient is calm, cooperative, she seems to be objectively and subjectively depressed. Tearful, she expresses that she regrets her recent actions. She says that she has been extremely depressed, overwhelmed, frustrated with intrusive thoughts of harming herself. She says that she has been confronting serious problems with her . In the last days they have been talking about after 34 years of marriage "and this is not very easy for me, but the most horrible has been his last actions". The patient also reports that she has been feeling hopeless, helpless , worthless, and is sleeping very poorly. The patient is now fully oriented 3 , without any fluctuation of consciousness, no attention deficit. However, as per nurses, the patient has been described as disorganized, with periodic confusion and agitation, but not aggressive. Tobacco Use In Past 30 Days: Refused To Answer Alcohol Use: Never Hospital Course Patient was admitted in the psychiatric unit due to an overdose after an argument with her . Psychosocial and psychiatric assessment were completed. Safety measures were taken. At the beginning of the hospitalization the patient was endorsing depression in the context of a recent important argument and disagreement with her . She was starting in psychotropic medications, individual and group therapy. The patient showed good response to these regimens. During her stay she in the unit the patient was mostly calm, cooperative, compliant with medications. She participated in activities integrated well. No agitation, no aggressive behavior reported. Meeting with family by phone and personally were performed. At the moment of discharge the patient does not present any symptomatology of depression, anxiety , saeid or psychosis. She is going to be discharged to her best friend house. Best friend agree with the plan. Results Blood Pressure 117 / 55 Vital Signs Date Time Temp Pulse Resp B/P (MAP) Pulse Ox O2 Delivery O2 Flow Rate FiO2 08/29/17 13:41 99.0 93 18 94 08/29/17 05:50 117/55 (75) Laboratory Tests Test 08/26/17 21:05 08/28/17 14:22 08/28/17 21:50 Urine Turbidity HAZY (CLEAR) Urine Protein 100 mg/dL (NEG-TRACE) Urine Ketones TRACE mg/dL (NEG) Urine Occult Blood SMALL (NEG) Urine Leukocyte Esterase TRACE (NEG) Urine Bacteria MANY /hpf (NONE) Urine Mucus FEW /lpf (OCC) White Blood Count 11.4 TH/MM3 (4.0-11.0) Red Blood Count 3.69 MIL/MM3 (4.00-5.30) Hematocrit 34.3 % (35.0-46.0) Neutrophils (%) (Auto) 72.8 % (16.0-70.0) Monocytes (%) (Auto) 9.5 % (0.0-8.0) Neutrophils # (Auto) 8.3 TH/MM3 (1.8-7.7) Monocytes # (Auto) 1.1 TH/MM3 (0-0.9) Blood Urea Nitrogen 22 MG/DL (7-18) Creatinine 1.21 MG/DL (0.50-1.00) Estimat Glomerular Filtration Rate 47 ML/MIN (>89) Laboratory Results Test 08/26/17 08:55 Cholesterol Level 139 MG/DL (120-200) HDL Cholesterol 63.9 MG/DL (40.0-60.0) Hemoglobin A1c 5.9 % (4.3-6.0) LDL Cholesterol 50 MG/DL (0-99) Triglycerides Level 124 MG/DL (42-150) Summary of Procedures [facility] Last Impressions Chest X-Ray 08/28/17 0000 Signed Impressions: Service Date/Time: Monday, August 28, 2017 14:01 - CONCLUSION: Bibasilar infiltrates. Srinivas Cornelius Jr., MD Pending results at discharge: No Medications # of Antipsychotic meds at D/C: 0 Approp Antipsych med options 1 - Minimum of three failed multiple trials of monotherapy. 2 - Documented plan to taper to monotherapy due to previous use of multiple meds OR cross-taper in progress at D/C. 3 - Documentation of augmentation of Clozapine. 4 - Justification other than those listed in allowable values 1-3, document here : Discharge Discharge Date: Aug 29, 2017 Discharge Diagnosis: (1) Major depressive disorder, single episode ICD Code: F32.9 - Major depressive disorder, single episode, unspecified Pt Condition on Discharge: Good Discharge Disposition: Discharge Home Discharge Instructions Diet Instructions: As Tolerated, No Restrictions Activities you can perform: Regular-No Restrictions Scheduled Appointment: Discharge Time > 30 minutes Mental Status Examination Appearance: Appropriate Consciousness: Alert Orientation: x4 Motor Activity: Normal gait Speech: Unremarkable Language: Adequate Fund of Knowledge: Adequate Attention and Concentration: Adequate Memory: Unremarkable Mood: Sad Affect: Sad, Anxious Thought Process & Associations: Intact Thought Content: Appropriate Hallucination Type: None Delusion Type: None Suicidal Ideation: Yes Suicidal Plan: No Suicidal Intention: No Homicidal Ideation: No Homicidal Plan: No Homicidal Intention: No Insight: Poor Judgment: Poor Discharge/Advance Care Plan Health Problems: (1) Major depressive disorder, recurrent Goals to promote your health * To prevent worsening of your condition and complications * To maintain your health at the optimal level Directions to meet your goals Take your medications as prescribed Follow your dietary instruction Follow activity as directed Keep your appointments as scheduled Take your immunizations and boosters as scheduled If your symptoms worsen call your PCP, if no PCP go to Urgent Care Center or Emergency Room For 27/02 questions related to your inpatient stay or results of tests pending at discharge, please contact Dr. Mayco Cunha at Smoking is Dangerous to Your Health. Avoid second hand smoking Mayco Cunha MD Aug 29, 2017 14:12
--- NOTE | 2017-08-29 14:19 | HHI.PR ---
Subjective Remarks Follow-up fever. She is feeling much better temperature down to 99 and wants to go home. Improving cough and no shortness of breath. No UTI symptoms. Patient aware urine and blood cultures are pending. States she will follow-up with her primary care physician by the end of the week. Discussed with RN and psychiatry Objective Vitals Vital Signs Date Time Temp Pulse Resp B/P (MAP) Pulse Ox O2 Delivery O2 Flow Rate FiO2 08/29/17 13:41 99.0 93 18 94 08/29/17 06:45 101.6 08/29/17 05:50 102.8 114 18 117/55 (75) 93 08/28/17 18:13 100.0 104 18 124/58 (80) 95 I/O 08/28/17 08/28/17 08/28/17 08/29/17 08/29/17 08/29/17 07:00 15:00 23:00 07:00 15:00 23:00 Intake Total 240 ml Balance 240 ml Intake Oral 240 ml Result Diagram: 08/28/17214908/28/172149 Imaging Last Impressions Chest X-Ray 08/28/17 0000 Signed Impressions: Service Date/Time: Monday, August 28, 2017 14:01 - CONCLUSION: Bibasilar infiltrates. Srinivas Cornelius Jr., MD Objective Remarks GENERAL: This is a well-nourished, well-developed female patient, in no apparent distress. Awake and alert. SKIN: No rashes, ecchymoses or lesions. Cool and dry. CARDIOVASCULAR: Regular rate and rhythm without murmurs, gallops, or rubs. RESPIRATORY: Coarse Breath sounds equal bilaterally. No wheezes, rales, or rhonchi. GASTROINTESTINAL: Abdomen soft, non-tender, nondistended. No guarding. MUSCULOSKELETAL: Extremities without clubbing, cyanosis, or edema. No joint tenderness, effusion, or edema noted. No calf tenderness. No CVA tenderness NEUROLOGICAL: Awake and alert. Cranial nerves II through XII grossly intact. Motor and sensory grossly within normal limits. Five out of 5 muscle strength in all muscle groups. Normal speech. A/P Assessment and Plan 52yo female with PMHX significant for right subclavian steal syndrome, HTN, HLD and depression who was admitted to [facility] on 08/24/17 with AMS after being found by her unarousable with benzodiazepines and opiates at her beside due to suspected intentional overdose and has since been admitted to the inpatient psychiatric unit. Fever with gram-negative jaren UTI and abnormal chest x-ray with right basilar infiltrates. BMP within normal limits. Negative for flu. Improving clinically stable. Continue Ceftin and Zithromax and follow up urine and blood cultures. Repeat chest x-ray in 6 weeks Depression Suicidal ideation Intentional overdose - Management per psychiatric team LORRI/CKD stage 3. Improving - suspect due to hypovolemia - encourage po intake - avoid nephrotoxic agents - continue to monitor kidney function Hypokalemia with improving - po K repletion - rpt labs to monitor response Hypertension - off antihypertensives - continue to monitor BP and adjust treatment accordingly Dyslipidemia - continue statin therapy DVT prophylaxis - patient is ambulatory Zeke Mccormick MD Aug 29, 2017 14:19
[2017-08-29] MEDS ORDERED: AZIT250T3 PO (14:24)
[2017-08-29] MEDS ORDERED: CEFU1TAB20 PO (14:24)
== END 2017-08-29 15:24 | disposition home or self-care (01) | DRG 885 ==
LOC: H260 11:41
PROVIDERS: ADMIT Psychiatry & Neurology Psychiatry; ATTEND Psychiatry & Neurology Psychiatry
DX: F33.2 Major depressive disorder, recurrent severe without psychotic features (principal); N17.9 Acute kidney failure, unspecified; N18.3 Chronic kidney disease, stage 3 (moderate); N39.0 Urinary tract infection, site not specified; I12.9 Hypertensive chronic kidney disease with stage 1 through stage 4 chronic kidney disease, or unspecified chronic kidney disease; F41.9 Anxiety disorder, unspecified; E78.5 Hyperlipidemia, unspecified; T42.4X2A Poisoning by benzodiazepines, intentional self-harm, initial encounter; T40.2X2A Poisoning by other opioids, intentional self-harm, initial encounter; R40.4 Transient alteration of awareness; R10.30 Lower abdominal pain, unspecified; E87.6 Hypokalemia; G47.00 Insomnia, unspecified; R40.2431 Glasgow coma scale score 3-8, in the field [EMT or ambulance]; B96.1 Klebsiella pneumoniae [K. pneumoniae] as the cause of diseases classified elsewhere; Z88.2 Allergy status to sulfonamides; Y92.009 Unspecified place in unspecified non-institutional (private) residence as the place of occurrence of the external cause; Z63.0 Problems in relationship with spouse or partner
CPT/HCPCS: 71045; 80048; 80061; 81001; 83036; 83735; 83880; 84132; 85025; 87040; 87070; 87077; 87086; 87186; 87205; 87804